=== PATIENT | female | born 1935 | race African-American/Black ===

== ENCOUNTER 2017-09-08 17:49 | Emergency (ER) | payer MEDICARE, BC ==
[~2017-09-08] VITALS: Ht 154.9 cm; Wt 54.0 kg
[~2017-09-08 17:49] MED LIST: ATEN50TA PO; CARB25TA3 PO
[2017-09-08 18:28] VITALS: BP 164/59
[2017-09-08 21:24] LABS: BASOPHILS % 0.3 % (0.0-2.0); HEMOGLOBIN. 11.7 g/dL (12.0-16.0); LYMPHOCYTES % 22.3 % (20.0-50.0); MEAN CORPUSCULAR HEMOGLOBIN 27.9 pg (28.0-32.0); MEAN CORPUSCULAR VOLUME 83.4 fL (81.0-99.0); MEAN PLATELET VOLUME 7.2 fl (7.4-10.4); MONOCYTES % 9.3 % (2.0-8.0); NEUTROPHILS % 67.1 % (40.0-76.0); PLATELET 290 x1000/uL (130-400); RED CELL DISTRIBUTION WIDTH 14.6 % (11.6-14.6)
[2017-09-08 21:28] LABS: CHLORIDE 106 mEq/L (98-107)
[2017-09-08 21:30] LABS: INR 1.1; PROTHROMBIN TIME 10.9 sec (9.4-11.6)
[2017-09-08 21:34] LABS: ETHANOL BLOOD < 10 mg/dL
[2017-09-08] MEDS ORDERED: POTASSIUM BICARB/CIT ACID 25 MEQ TABLET.EFF PO NR (22:00)
[2017-09-08] MEDS ORDERED: KCL 20MEQ/100ML PREMIX 100 ML IV ONE (22:00)
[2017-09-08] MEDS ORDERED: POTASSIUM CHLORIDE INJ 20 MEQ in SODIUM CHLORIDE 0.9% 90 ML IV NR (22:15)
== END 2017-09-09 01:56 | disposition home or self-care (01) ==
LOC: ER 17:49
DX: E87.6 Hypokalemia (principal); E11.9 Type 2 diabetes mellitus without complications; Z85.3 Personal history of malignant neoplasm of breast; Z86.73 Personal history of transient ischemic attack (TIA), and cerebral infarction without residual deficits
CPT/HCPCS: 36415; 71045; 80053; 83735; 84132; 84484; 85025; 85610; 93005; 96365; 96366; 99285; C1893; G0482; J3480; 96360; 96361; J7050

== ENCOUNTER 2018-04-27 14:30 | Inpatient (IN) | payer MEDICARE, BC ==
[~2018-04-27] VITALS: Ht 167.6 cm; Wt 71.2 kg
[~2018-04-27 14:30] MED LIST changes: +AMLO10TA4 MT; +ASPI-1159 MT; +ATOR10TA PO; +BIMA2.5D4 EACHEYE; +BRIM10DR2 EACHEYE; +CARB1TAB5 MT; -CARB25TA3 PO; +CHOL200077 MT
[2018-04-27 15:00] VITALS: BP 151/63
[2018-04-27] MEDS ORDERED: BISACODYL 5MG TABLET PO PRN (16:15)
[2018-04-27] MEDS ORDERED: ACETAMINOPHEN 650MG/20.3ML UDC PO PRN (16:15)
[2018-04-27] MEDS ORDERED: DEXTROSE 50% WATER 50ML SYRINGE IV PRN (16:15)
[2018-04-27] MEDS ORDERED: MEDICATION NOT ON FORMULARY EA (Aspirin (Aspirin Low Dose) 1 TAB) MT SCH (16:45)
[2018-04-27] MEDS ORDERED: DIPHENHYDRAMINE 50MG/ML VIAL IV PRN (16:45)
[2018-04-27] MEDS ORDERED: ACETAMINOPHEN 325MG TABLET PO PRN (16:45)
[2018-04-27] MEDS ORDERED: MAGNESIUM/ALUMINUM HYDROXIDE/SIMETHICONE 30ML UDC PO PRN (16:45)
[2018-04-27] MEDS ORDERED: ONDANSETRON HCL 4MG/2ML INJ IV PRN (16:45)
[2018-04-27] MEDS ORDERED: ACETAMINOPHEN 650MG SUPP PR PRN (16:45)
[2018-04-27] MEDS ORDERED: HYDROCODONE/ACETAMINOPHEN 5/325MG TABLET PO PRN (16:45)
[2018-04-27] MEDS ORDERED: GUAIFENESIN 200MG/10ML SUGAR FREE UDC PO PRN (16:45)
[2018-04-27] MEDS ORDERED: DOCUSATE SODIUM 100MG CAPSULE PO PRN (16:45)
[2018-04-27] MEDS ORDERED: MEDICATION NOT ON FORMULARY EA (Atenolol 1 TAB) PO SCH (16:45)
[2018-04-27] MEDS ORDERED: CLONIDINE 0.1MG TABLET PO PRN (16:45)
[2018-04-27] MEDS ORDERED: NA PHOS,M-B/NA PHOS,DI-BA ENEMA 118ML PR PRN (16:45)
[2018-04-27] MEDS ORDERED: IPRATROPIUM/ALBUTEROL 0.5-3(2.5)MG/3ML NEB INH PRN (16:45)
[2018-04-27] MEDS ORDERED: ACETAMINOPHEN 650MG/20.3ML UDC GT PRN (16:45)
[2018-04-27] MEDS ORDERED: AMLODIPINE 10MG TABLET PO SCH (16:45)
[2018-04-27] MEDS: INSULIN LISPRO 100 UNITS/ML SUBCUT SCH ×2 (17:00→21:40)
[2018-04-27] MEDS ORDERED: CARBIDOPA/LEVODOPA 25/100MG TABLET CR PO SCH ×2 (17:00)
[2018-04-27] MEDS: BLOOD SUGAR DIAGNOSTIC STRIP TEST SCH ×2 (17:27→21:16)
[2018-04-27] MEDS: DOCUSATE SODIUM 100MG CAPSULE PO SCH (18:29)
[2018-04-27] MEDS: CARBIDOPA/LEVODOPA 25/100MG TABLET CR PO SCH (18:34)
[2018-04-27] MEDS ORDERED: MEDICATION NOT ON FORMULARY EA (Brimonidine Tartrate/Timolol (Combigan Eye Drops) 1 DROP EACHEYE SCH (19:15)
[2018-04-27 20:00] VITALS: BP 135/69
[2018-04-27] MEDS ORDERED: ATORVASTATIN CALCIUM 10MG TABLET PO SCH (21:00)
[2018-04-27] MEDS: BUDESONIDE 0.5MG/2ML NEB HHN SCH (21:12)
[2018-04-27] MEDS: ATORVASTATIN CALCIUM 10MG TABLET PO SCH (21:38)
[2018-04-27] MEDS: ENOXAPARIN 40MG/0.4ML SYR SUBCUT SCH (21:39)
[2018-04-27] MEDS: TIMOLOL MALEATE 0.5% OPHTH DROPS 5ML EACHEYE SCH (21:41)
[2018-04-27] MEDS: BRIMONIDINE 0.2% OPHTH DROPS 5ML EACHEYE SCH (21:41)
[2018-04-27] MEDS: LATANOPROST 0.005% OPHTH DROPS 2.5ML EACHEYE SCH (21:42)
[2018-04-27] MEDS: SODIUM CHLORIDE 0.9% INJ 3ML FLUSH IVF SCH (21:44)
[2018-04-28] MEDS: INSULIN LISPRO 100 UNITS/ML SUBCUT SCH ×6 (06:23→22:10)
[2018-04-28] MEDS: BLOOD SUGAR DIAGNOSTIC STRIP TEST SCH ×4 (06:25→20:43)
[2018-04-28] MEDS: SODIUM CHLORIDE 0.9% INJ 3ML FLUSH IVF SCH ×3 (06:25→22:12)
[2018-04-28 08:11] VITALS: BP 166/61
[2018-04-28] MEDS ORDERED: MEDICATION NOT ON FORMULARY EA (Bimatoprost (Lumigan) 1 DROP) EACHEYE SCH (09:00)
[2018-04-28 09:17] LABS: HEMATOCRIT. 36.2 % (36.0-48.0); MEAN CORPUSCULAR HEMOGLOBIN 28.4 pg (28.0-32.0); MEAN CORPUSCULAR VOLUME 85.7 fL (81.0-99.0); MEAN PLATELET VOLUME 7.8 fl (7.4-10.4); PLATELET 255 x1000/uL (130-400); RED BLOOD CELL COUNT 4.22 mill/uL (4.2-5.4); RED CELL DISTRIBUTION WIDTH 13.2 % (11.6-14.6)
[2018-04-28] MEDS: TIMOLOL MALEATE 0.5% OPHTH DROPS 5ML EACHEYE SCH ×2 (09:35→22:06)
[2018-04-28 09:36] LABS: CHLORIDE 103 mEq/L (98-107)
[2018-04-28] MEDS: AMLODIPINE 10MG TABLET PO SCH (09:36)
[2018-04-28] MEDS: BRIMONIDINE 0.2% OPHTH DROPS 5ML EACHEYE SCH ×2 (09:36→22:06)
[2018-04-28] MEDS: CHOLECALCIFEROL (D3) 1000 UNIT TABLET PO SCH (09:37)
[2018-04-28] MEDS: CARBIDOPA/LEVODOPA 25/100MG TABLET CR PO SCH ×2 (09:37→17:30)
[2018-04-28] MEDS: DOCUSATE SODIUM 100MG CAPSULE PO SCH ×2 (09:37→17:30)
[2018-04-28] MEDS: CLOPIDOGREL 75MG TABLET PO SCH (09:38)
[2018-04-28] MEDS: ATENOLOL 50 MG TABLET PO SCH (09:38)
[2018-04-28] MEDS: ASPIRIN 81MG TABLET PO SCH (09:38)
[2018-04-28 09:45] LABS: HDL CHOLESTEROL 71 mg/dL (40-59); LDL CHOLESTEROL 71 mg/dL (5-100)
[2018-04-28] MEDS: BUDESONIDE 0.5MG/2ML NEB HHN SCH ×2 (14:50→21:59)
[2018-04-28 14:52] LABS: PLATELET ESTIMATE NORMAL
[2018-04-28] MEDS: ZINC SULFATE 220 MG ( 50 ) CAPSULE PO SCH (14:57)
[2018-04-28] MEDS: MULTIVITAMINS,THER W-MINERALS TABLET PO SCH (14:57)
[2018-04-28] MEDS: ASCORBIC ACID 250 MG TABLET PO SCH ×2 (14:58→22:05)
[2018-04-28] MEDS: IPRATROPIUM/ALBUTEROL 0.5-3(2.5)MG/3ML NEB HHN PRN ×2 (16:04→21:59)
[2018-04-28 20:24] VITALS: BP 113/52
[2018-04-28] MEDS: ATORVASTATIN CALCIUM 10MG TABLET PO SCH (22:04)
[2018-04-28] MEDS: ENOXAPARIN 40MG/0.4ML SYR SUBCUT SCH (22:05)
[2018-04-28] MEDS: LATANOPROST 0.005% OPHTH DROPS 2.5ML EACHEYE SCH (22:11)
[2018-04-29] MEDS: SODIUM CHLORIDE 0.9% INJ 3ML FLUSH IVF SCH ×3 (06:21→21:18)
[2018-04-29] MEDS: BLOOD SUGAR DIAGNOSTIC STRIP TEST SCH ×4 (06:22→20:14)
[2018-04-29] MEDS: INSULIN LISPRO 100 UNITS/ML SUBCUT SCH ×4 (06:22→20:17)
[2018-04-29] MEDS: IPRATROPIUM/ALBUTEROL 0.5-3(2.5)MG/3ML NEB HHN PRN ×2 (07:40→22:09)
[2018-04-29] MEDS: BUDESONIDE 0.5MG/2ML NEB HHN SCH ×2 (07:40→22:09)
[2018-04-29 08:30] VITALS: BP 130/55
[2018-04-29] MEDS: DOCUSATE SODIUM 100MG CAPSULE PO SCH ×2 (10:05→16:35)
[2018-04-29] MEDS: ASCORBIC ACID 250 MG TABLET PO SCH ×2 (10:05→20:14)
[2018-04-29] MEDS: CHOLECALCIFEROL (D3) 1000 UNIT TABLET PO SCH (10:05)
[2018-04-29] MEDS: CLOPIDOGREL 75MG TABLET PO SCH (10:05)
[2018-04-29] MEDS: ZINC SULFATE 220 MG ( 50 ) CAPSULE PO SCH (10:05)
[2018-04-29] MEDS: ATENOLOL 50 MG TABLET PO SCH (10:06)
[2018-04-29] MEDS: ASPIRIN 81MG TABLET PO SCH (10:06)
[2018-04-29] MEDS: CARBIDOPA/LEVODOPA 25/100MG TABLET CR PO SCH ×2 (10:06→17:59)
[2018-04-29] MEDS: AMLODIPINE 10MG TABLET PO SCH (10:07)
[2018-04-29] MEDS: MULTIVITAMINS,THER W-MINERALS TABLET PO SCH (10:07)
[2018-04-29] MEDS: TIMOLOL MALEATE 0.5% OPHTH DROPS 5ML EACHEYE SCH (17:58)
[2018-04-29] MEDS: BRIMONIDINE 0.2% OPHTH DROPS 5ML EACHEYE SCH (17:59)
[2018-04-29 20:00] VITALS: BP 118/40
[2018-04-29] MEDS: ATORVASTATIN CALCIUM 10MG TABLET PO SCH ×2 (20:14→21:00)
[2018-04-29] MEDS: ENOXAPARIN 40MG/0.4ML SYR SUBCUT SCH ×2 (20:14→20:17)
[2018-04-29] MEDS: LATANOPROST 0.005% OPHTH DROPS 2.5ML EACHEYE SCH (20:14)
[2018-04-30] MEDS: SODIUM CHLORIDE 0.9% INJ 3ML FLUSH IVF SCH ×3 (06:06→21:38)
[2018-04-30] MEDS: BLOOD SUGAR DIAGNOSTIC STRIP TEST SCH ×4 (06:06→21:14)
[2018-04-30] MEDS: INSULIN LISPRO 100 UNITS/ML SUBCUT SCH ×4 (06:07→21:00)
[2018-04-30 08:00] VITALS: BP 128/47
[2018-04-30] MEDS: BUDESONIDE 0.5MG/2ML NEB HHN SCH ×2 (08:51→20:41)
[2018-04-30] MEDS: IPRATROPIUM/ALBUTEROL 0.5-3(2.5)MG/3ML NEB HHN PRN ×2 (08:52→20:42)
[2018-04-30] MEDS: BRIMONIDINE 0.2% OPHTH DROPS 5ML EACHEYE SCH ×3 (09:00→21:58)
[2018-04-30] MEDS: TIMOLOL MALEATE 0.5% OPHTH DROPS 5ML EACHEYE SCH ×2 (09:00→21:57)
[2018-04-30] MEDS: CHOLECALCIFEROL (D3) 1000 UNIT TABLET PO SCH (10:05)
[2018-04-30] MEDS: MULTIVITAMINS,THER W-MINERALS TABLET PO SCH (10:08)
[2018-04-30] MEDS: ASCORBIC ACID 250 MG TABLET PO SCH ×2 (10:10→21:24)
[2018-04-30] MEDS: ZINC SULFATE 220 MG ( 50 ) CAPSULE PO SCH (10:11)
[2018-04-30] MEDS: ASPIRIN 81MG TABLET PO SCH (10:11)
[2018-04-30] MEDS: AMLODIPINE 10MG TABLET PO SCH (10:14)
[2018-04-30] MEDS: ATENOLOL 50 MG TABLET PO SCH (10:15)
[2018-04-30] MEDS: CARBIDOPA/LEVODOPA 25/100MG TABLET CR PO SCH ×3 (10:15→16:51)
[2018-04-30] MEDS: CLOPIDOGREL 75MG TABLET PO SCH (10:18)
[2018-04-30] MEDS: DOCUSATE SODIUM 100MG CAPSULE PO SCH ×2 (10:26→16:48)
[2018-04-30 20:00] VITALS: BP 130/57
[2018-04-30] MEDS: ENOXAPARIN 40MG/0.4ML SYR SUBCUT SCH (21:00)
[2018-04-30] MEDS: ATORVASTATIN CALCIUM 10MG TABLET PO SCH (21:24)
[2018-04-30] MEDS: LATANOPROST 0.005% OPHTH DROPS 2.5ML EACHEYE SCH (21:24)
[2018-05-01] MEDS: SODIUM CHLORIDE 0.9% INJ 3ML FLUSH IVF SCH ×3 (06:37→21:53)
[2018-05-01] MEDS: BLOOD SUGAR DIAGNOSTIC STRIP TEST SCH ×4 (06:37→21:52)
[2018-05-01 08:23] VITALS: BP 121/52
[2018-05-01] MEDS: INSULIN LISPRO 100 UNITS/ML SUBCUT SCH ×4 (09:00→21:00)
[2018-05-01] MEDS: TIMOLOL MALEATE 0.5% OPHTH DROPS 5ML EACHEYE SCH ×2 (09:00→21:37)
[2018-05-01] MEDS: BRIMONIDINE 0.2% OPHTH DROPS 5ML EACHEYE SCH ×2 (09:00→21:35)
[2018-05-01] MEDS: MULTIVITAMINS,THER W-MINERALS TABLET PO SCH (09:35)
[2018-05-01] MEDS: ASCORBIC ACID 250 MG TABLET PO SCH ×2 (09:35→21:34)
[2018-05-01] MEDS: CHOLECALCIFEROL (D3) 1000 UNIT TABLET PO SCH (09:35)
[2018-05-01] MEDS: CLOPIDOGREL 75MG TABLET PO SCH (09:35)
[2018-05-01] MEDS: ASPIRIN 81MG TABLET PO SCH (09:36)
[2018-05-01] MEDS: ZINC SULFATE 220 MG ( 50 ) CAPSULE PO SCH (09:36)
[2018-05-01] MEDS: DOCUSATE SODIUM 100MG CAPSULE PO SCH ×2 (09:36→17:08)
[2018-05-01] MEDS: CARBIDOPA/LEVODOPA 25/100MG TABLET CR PO SCH ×2 (09:36→17:08)
[2018-05-01] MEDS: ATENOLOL 50 MG TABLET PO SCH (09:37)
[2018-05-01] MEDS: AMLODIPINE 10MG TABLET PO SCH (09:38)
[2018-05-01 20:00] VITALS: BP 134/48
[2018-05-01] MEDS: ATORVASTATIN CALCIUM 10MG TABLET PO SCH (21:34)
[2018-05-01] MEDS: LATANOPROST 0.005% OPHTH DROPS 2.5ML EACHEYE SCH ×2 (21:35→21:36)
[2018-05-01] MEDS: ENOXAPARIN 40MG/0.4ML SYR SUBCUT SCH (21:38)
[2018-05-02] MEDS: SODIUM CHLORIDE 0.9% INJ 3ML FLUSH IVF SCH ×3 (06:00→22:00)
[2018-05-02] MEDS: BLOOD SUGAR DIAGNOSTIC STRIP TEST SCH ×4 (06:30→21:07)
[2018-05-02] MEDS: INSULIN LISPRO 100 UNITS/ML SUBCUT SCH ×4 (06:44→21:00)
[2018-05-02 07:57] VITALS: BP 112/54
[2018-05-02] MEDS: CARBIDOPA/LEVODOPA 25/100MG TABLET CR PO SCH ×2 (09:27→17:48)
[2018-05-02] MEDS: AMLODIPINE 10MG TABLET PO SCH (09:27)
[2018-05-02] MEDS: TIMOLOL MALEATE 0.5% OPHTH DROPS 5ML EACHEYE SCH ×2 (09:27→21:07)
[2018-05-02] MEDS: BRIMONIDINE 0.2% OPHTH DROPS 5ML EACHEYE SCH ×2 (09:27→21:07)
[2018-05-02] MEDS: MULTIVITAMINS,THER W-MINERALS TABLET PO SCH (09:30)
[2018-05-02] MEDS: ASPIRIN 81MG TABLET PO SCH (09:30)
[2018-05-02] MEDS: CLOPIDOGREL 75MG TABLET PO SCH (09:30)
[2018-05-02] MEDS: DOCUSATE SODIUM 100MG CAPSULE PO SCH ×2 (09:30→17:48)
[2018-05-02] MEDS: ZINC SULFATE 220 MG ( 50 ) CAPSULE PO SCH (09:30)
[2018-05-02] MEDS: CHOLECALCIFEROL (D3) 1000 UNIT TABLET PO SCH (09:30)
[2018-05-02] MEDS: ATENOLOL 50 MG TABLET PO SCH (09:30)
[2018-05-02] MEDS: ASCORBIC ACID 250 MG TABLET PO SCH ×2 (09:30→21:06)
[2018-05-02] MEDS: SODIUM CHLORIDE 0.9% 1,000 ML IV SCH (13:15)
[2018-05-02 17:23] LABS: BASOPHILS % 0.3 % (0.0-2.0); EOSINOPHILS % 1.4 % (0.0-5.0); HEMATOCRIT. 31.9 % (36.0-48.0); HEMOGLOBIN. 10.8 g/dL (12.0-16.0); LYMPHOCYTES % 17.7 % (20.0-50.0); MEAN CORPUSCULAR HEMOGLOBIN 28.8 pg (28.0-32.0); MEAN CORPUSCULAR VOLUME 84.8 fL (81.0-99.0); MEAN PLATELET VOLUME 7.6 fl (7.4-10.4); MONOCYTES % 10.2 % (2.0-8.0); NEUTROPHILS % 70.4 % (40.0-76.0); PLATELET 317 x1000/uL (130-400); RED BLOOD CELL COUNT 3.77 mill/uL (4.2-5.4); RED CELL DISTRIBUTION WIDTH 12.7 % (11.6-14.6)
[2018-05-02 17:25] LABS: CLARITY URINE CLEAR (CLEAR); COLOR URINE YELLOW (YELLOW); KETONES URINE NEGATIVE (NEGATIVE); LEUKOCYTE ESTERASE URINE NEGATIVE (NEGATIVE); NITRITE URINE NEGATIVE (NEGATIVE); OCCULT BLOOD URINE NEGATIVE (NEGATIVE); PROTEIN URINE NEGATIVE (NEGATIVE); SPECIFIC GRAVITY URINE 1.015 (1.005-1.030); UROBILINOGEN URINE 0.2 E.U./dL (0.2-1.0)
[2018-05-02 17:30] LABS: CHLORIDE 102 mEq/L (98-107); INR 1.1; PROTHROMBIN TIME 10.7 sec (9.1-11.1)
[2018-05-02 20:00] VITALS: BP 134/58
[2018-05-02] MEDS: ATORVASTATIN CALCIUM 10MG TABLET PO SCH (21:06)
[2018-05-02] MEDS: LATANOPROST 0.005% OPHTH DROPS 2.5ML EACHEYE SCH (21:07)
[2018-05-02] MEDS: ENOXAPARIN 40MG/0.4ML SYR SUBCUT SCH (21:07)
[2018-05-03] MEDS: SODIUM CHLORIDE 0.9% 1,000 ML IV SCH (05:55)
[2018-05-03] MEDS: SODIUM CHLORIDE 0.9% INJ 3ML FLUSH IVF SCH (06:00)
[2018-05-03] MEDS: INSULIN LISPRO 100 UNITS/ML SUBCUT SCH ×4 (06:23→21:00)
[2018-05-03] MEDS: BLOOD SUGAR DIAGNOSTIC STRIP TEST SCH ×4 (06:23→21:53)
[2018-05-03 08:51] VITALS: BP 130/58
[2018-05-03] MEDS: MULTIVITAMINS,THER W-MINERALS TABLET PO SCH (09:56)
[2018-05-03] MEDS: ASCORBIC ACID 250 MG TABLET PO SCH ×2 (09:57→21:52)
[2018-05-03] MEDS: ZINC SULFATE 220 MG ( 50 ) CAPSULE PO SCH (09:57)
[2018-05-03] MEDS: CARBIDOPA/LEVODOPA 25/100MG TABLET CR PO SCH ×2 (09:57→17:31)
[2018-05-03] MEDS: DOCUSATE SODIUM 100MG CAPSULE PO SCH ×2 (09:57→17:31)
[2018-05-03] MEDS: CLOPIDOGREL 75MG TABLET PO SCH (09:57)
[2018-05-03] MEDS: CHOLECALCIFEROL (D3) 1000 UNIT TABLET PO SCH (09:58)
[2018-05-03] MEDS: ASPIRIN 81MG TABLET PO SCH (09:58)
[2018-05-03] MEDS: AMLODIPINE 10MG TABLET PO SCH (09:58)
[2018-05-03] MEDS: ATENOLOL 50 MG TABLET PO SCH (09:59)
[2018-05-03] MEDS: TIMOLOL MALEATE 0.5% OPHTH DROPS 5ML EACHEYE SCH ×2 (09:59→21:54)
[2018-05-03] MEDS: BRIMONIDINE 0.2% OPHTH DROPS 5ML EACHEYE SCH ×2 (09:59→21:54)
[2018-05-03 20:00] VITALS: BP 114/74
[2018-05-03] MEDS: ATORVASTATIN CALCIUM 10MG TABLET PO SCH (21:52)
[2018-05-03] MEDS: ENOXAPARIN 40MG/0.4ML SYR SUBCUT SCH (21:53)
[2018-05-03] MEDS: LATANOPROST 0.005% OPHTH DROPS 2.5ML EACHEYE SCH (21:54)
[2018-05-04] MEDS: INSULIN LISPRO 100 UNITS/ML SUBCUT SCH ×4 (06:43→21:00)
[2018-05-04] MEDS: BLOOD SUGAR DIAGNOSTIC STRIP TEST SCH ×4 (06:43→21:00)
[2018-05-04 08:00] VITALS: BP 143/59
[2018-05-04] MEDS: CHOLECALCIFEROL (D3) 1000 UNIT TABLET PO SCH (09:22)
[2018-05-04] MEDS: CLOPIDOGREL 75MG TABLET PO SCH (09:22)
[2018-05-04] MEDS: CARBIDOPA/LEVODOPA 25/100MG TABLET CR PO SCH ×2 (09:22→17:05)
[2018-05-04] MEDS: ASPIRIN 81MG TABLET PO SCH (09:23)
[2018-05-04] MEDS: DOCUSATE SODIUM 100MG CAPSULE PO SCH ×2 (09:23→17:05)
[2018-05-04] MEDS: ATENOLOL 50 MG TABLET PO SCH (09:24)
[2018-05-04] MEDS: MULTIVITAMINS,THER W-MINERALS TABLET PO SCH (09:24)
[2018-05-04] MEDS: ZINC SULFATE 220 MG ( 50 ) CAPSULE PO SCH (09:24)
[2018-05-04] MEDS: AMLODIPINE 10MG TABLET PO SCH (09:24)
[2018-05-04] MEDS: ASCORBIC ACID 250 MG TABLET PO SCH ×2 (09:25→21:42)
[2018-05-04] MEDS: BRIMONIDINE 0.2% OPHTH DROPS 5ML EACHEYE SCH ×2 (09:25→21:41)
[2018-05-04] MEDS: TIMOLOL MALEATE 0.5% OPHTH DROPS 5ML EACHEYE SCH ×2 (09:25→21:40)
[2018-05-04 20:00] VITALS: BP 126/51
[2018-05-04] MEDS: ENOXAPARIN 40MG/0.4ML SYR SUBCUT SCH (21:39)
[2018-05-04] MEDS: LATANOPROST 0.005% OPHTH DROPS 2.5ML EACHEYE SCH (21:41)
[2018-05-04] MEDS: ATORVASTATIN CALCIUM 10MG TABLET PO SCH (21:41)
[2018-05-05] MEDS: BLOOD SUGAR DIAGNOSTIC STRIP TEST SCH ×4 (06:04→21:35)
[2018-05-05] MEDS: INSULIN LISPRO 100 UNITS/ML SUBCUT SCH ×4 (06:04→21:00)
[2018-05-05 08:00] VITALS: BP 125/54
[2018-05-05] MEDS: MULTIVITAMINS,THER W-MINERALS TABLET PO SCH (08:51)
[2018-05-05] MEDS: ZINC SULFATE 220 MG ( 50 ) CAPSULE PO SCH (08:52)
[2018-05-05] MEDS: CHOLECALCIFEROL (D3) 1000 UNIT TABLET PO SCH (08:52)
[2018-05-05] MEDS: ATENOLOL 50 MG TABLET PO SCH (08:52)
[2018-05-05] MEDS: ASPIRIN 81MG TABLET PO SCH (08:52)
[2018-05-05] MEDS: CLOPIDOGREL 75MG TABLET PO SCH (08:52)
[2018-05-05] MEDS: AMLODIPINE 10MG TABLET PO SCH (08:52)
[2018-05-05] MEDS: DOCUSATE SODIUM 100MG CAPSULE PO SCH ×2 (08:52→17:48)
[2018-05-05] MEDS: CARBIDOPA/LEVODOPA 25/100MG TABLET CR PO SCH ×2 (08:52→17:48)
[2018-05-05] MEDS: ASCORBIC ACID 250 MG TABLET PO SCH ×2 (08:52→21:35)
[2018-05-05] MEDS: BRIMONIDINE 0.2% OPHTH DROPS 5ML EACHEYE SCH ×2 (09:36→21:35)
[2018-05-05] MEDS: TIMOLOL MALEATE 0.5% OPHTH DROPS 5ML EACHEYE SCH ×2 (09:36→21:35)
[2018-05-05 20:00] VITALS: BP 131/52
[2018-05-05] MEDS: ENOXAPARIN 40MG/0.4ML SYR SUBCUT SCH (21:00)
[2018-05-05] MEDS: ATORVASTATIN CALCIUM 10MG TABLET PO SCH (21:35)
[2018-05-06] MEDS: BLOOD SUGAR DIAGNOSTIC STRIP TEST SCH ×4 (06:58→21:21)
[2018-05-06] MEDS: INSULIN LISPRO 100 UNITS/ML SUBCUT SCH ×4 (06:59→21:00)
[2018-05-06 08:43] VITALS: BP 122/52
[2018-05-06] MEDS: ASCORBIC ACID 250 MG TABLET PO SCH ×2 (09:00→21:12)
[2018-05-06] MEDS: BRIMONIDINE 0.2% OPHTH DROPS 5ML EACHEYE SCH ×2 (10:02→21:12)
[2018-05-06] MEDS: ZINC SULFATE 220 MG ( 50 ) CAPSULE PO SCH (10:02)
[2018-05-06] MEDS: CARBIDOPA/LEVODOPA 25/100MG TABLET CR PO SCH ×2 (10:02→17:25)
[2018-05-06] MEDS: DOCUSATE SODIUM 100MG CAPSULE PO SCH ×2 (10:02→17:25)
[2018-05-06] MEDS: CHOLECALCIFEROL (D3) 1000 UNIT TABLET PO SCH (10:02)
[2018-05-06] MEDS: TIMOLOL MALEATE 0.5% OPHTH DROPS 5ML EACHEYE SCH ×2 (10:02→21:12)
[2018-05-06] MEDS: MULTIVITAMINS,THER W-MINERALS TABLET PO SCH (10:02)
[2018-05-06] MEDS: CLOPIDOGREL 75MG TABLET PO SCH (10:03)
[2018-05-06] MEDS: ASPIRIN 81MG TABLET PO SCH (10:03)
[2018-05-06] MEDS: ATENOLOL 50 MG TABLET PO SCH (10:03)
[2018-05-06] MEDS: AMLODIPINE 10MG TABLET PO SCH (10:03)
[2018-05-06 20:00] VITALS: BP 137/47
[2018-05-06] MEDS: ENOXAPARIN 40MG/0.4ML SYR SUBCUT SCH (21:00)
[2018-05-06] MEDS: ATORVASTATIN CALCIUM 10MG TABLET PO SCH (21:12)
[2018-05-06] MEDS: LATANOPROST 0.005% OPHTH DROPS 2.5ML EACHEYE SCH (21:20)
[2018-05-07] MEDS: BLOOD SUGAR DIAGNOSTIC STRIP TEST SCH ×4 (06:55→21:20)
[2018-05-07 07:30] VITALS: BP 128/53
[2018-05-07] MEDS: INSULIN LISPRO 100 UNITS/ML SUBCUT SCH ×4 (09:00→21:00)
[2018-05-07] MEDS: CLOPIDOGREL 75MG TABLET PO SCH (09:00)
[2018-05-07] MEDS: CHOLECALCIFEROL (D3) 1000 UNIT TABLET PO SCH (09:28)
[2018-05-07] MEDS: CARBIDOPA/LEVODOPA 25/100MG TABLET CR PO SCH ×2 (09:28→17:20)
[2018-05-07] MEDS: ZINC SULFATE 220 MG ( 50 ) CAPSULE PO SCH (09:28)
[2018-05-07] MEDS: ASPIRIN 81MG TABLET PO SCH (09:28)
[2018-05-07] MEDS: DOCUSATE SODIUM 100MG CAPSULE PO SCH ×2 (09:29→17:20)
[2018-05-07] MEDS: MULTIVITAMINS,THER W-MINERALS TABLET PO SCH (09:29)
[2018-05-07] MEDS: ASCORBIC ACID 250 MG TABLET PO SCH ×2 (09:29→21:17)
[2018-05-07] MEDS: TIMOLOL MALEATE 0.5% OPHTH DROPS 5ML EACHEYE SCH ×2 (09:30→21:17)
[2018-05-07] MEDS: BRIMONIDINE 0.2% OPHTH DROPS 5ML EACHEYE SCH ×2 (09:30→21:17)
[2018-05-07] MEDS: ATENOLOL 50 MG TABLET PO SCH (10:02)
[2018-05-07] MEDS: AMLODIPINE 10MG TABLET PO SCH (10:03)
[2018-05-07 20:00] VITALS: BP 129/50
[2018-05-07] MEDS: ENOXAPARIN 40MG/0.4ML SYR SUBCUT SCH (21:00)
[2018-05-07] MEDS: LATANOPROST 0.005% OPHTH DROPS 2.5ML EACHEYE SCH (21:17)
[2018-05-07] MEDS: ATORVASTATIN CALCIUM 10MG TABLET PO SCH (21:17)
[2018-05-08 05:57] LABS: BASOPHILS % 0.3 % (0.0-2.0); HEMATOCRIT. 31.9 % (36.0-48.0); HEMOGLOBIN. 10.9 g/dL (12.0-16.0); LYMPHOCYTES % 16.6 % (20.0-50.0); MEAN CORPUSCULAR VOLUME 85.1 fL (81.0-99.0); MEAN PLATELET VOLUME 7.2 fl (7.4-10.4); MONOCYTES % 8.9 % (2.0-8.0); NEUTROPHILS % 73.2 % (40.0-76.0); PLATELET 377 x1000/uL (130-400); RED BLOOD CELL COUNT 3.75 mill/uL (4.2-5.4); RED CELL DISTRIBUTION WIDTH 12.9 % (11.6-14.6)
[2018-05-08 06:10] LABS: CHLORIDE 108 mEq/L (98-107)
[2018-05-08] MEDS: BLOOD SUGAR DIAGNOSTIC STRIP TEST SCH ×4 (06:29→21:51)
[2018-05-08 08:00] VITALS: BP 135/54
[2018-05-08] MEDS: INSULIN LISPRO 100 UNITS/ML SUBCUT SCH ×4 (08:04→21:00)
[2018-05-08] MEDS: BRIMONIDINE 0.2% OPHTH DROPS 5ML EACHEYE SCH ×2 (08:34→21:36)
[2018-05-08] MEDS: TIMOLOL MALEATE 0.5% OPHTH DROPS 5ML EACHEYE SCH ×2 (08:34→21:35)
[2018-05-08] MEDS: CHOLECALCIFEROL (D3) 1000 UNIT TABLET PO SCH (08:34)
[2018-05-08] MEDS: CLOPIDOGREL 75MG TABLET PO SCH (08:34)
[2018-05-08] MEDS: ASPIRIN 81MG TABLET PO SCH (08:34)
[2018-05-08] MEDS: ASCORBIC ACID 250 MG TABLET PO SCH ×2 (08:34→21:36)
[2018-05-08] MEDS: ZINC SULFATE 220 MG ( 50 ) CAPSULE PO SCH (08:34)
[2018-05-08] MEDS: CARBIDOPA/LEVODOPA 25/100MG TABLET CR PO SCH ×2 (08:35→17:18)
[2018-05-08] MEDS: MULTIVITAMINS,THER W-MINERALS TABLET PO SCH (08:35)
[2018-05-08] MEDS: ATENOLOL 50 MG TABLET PO SCH (08:37)
[2018-05-08] MEDS: AMLODIPINE 10MG TABLET PO SCH (08:37)
[2018-05-08] MEDS: DOCUSATE SODIUM 100MG CAPSULE PO SCH ×2 (08:45→17:18)
[2018-05-08 20:00] VITALS: BP 136/66
[2018-05-08] MEDS: ENOXAPARIN 40MG/0.4ML SYR SUBCUT SCH (21:00)
[2018-05-08] MEDS: ATORVASTATIN CALCIUM 10MG TABLET PO SCH (21:36)
[2018-05-08] MEDS: LATANOPROST 0.005% OPHTH DROPS 2.5ML EACHEYE SCH (21:36)
[2018-05-09] MEDS: BLOOD SUGAR DIAGNOSTIC STRIP TEST SCH ×4 (06:19→21:44)
[2018-05-09 08:00] VITALS: BP 124/57
[2018-05-09] MEDS: INSULIN LISPRO 100 UNITS/ML SUBCUT SCH ×4 (09:00→21:00)
[2018-05-09] MEDS: BRIMONIDINE 0.2% OPHTH DROPS 5ML EACHEYE SCH ×2 (09:37→21:42)
[2018-05-09] MEDS: TIMOLOL MALEATE 0.5% OPHTH DROPS 5ML EACHEYE SCH ×2 (09:37→21:42)
[2018-05-09] MEDS: ZINC SULFATE 220 MG ( 50 ) CAPSULE PO SCH (09:38)
[2018-05-09] MEDS: ASPIRIN 81MG TABLET PO SCH (09:38)
[2018-05-09] MEDS: CARBIDOPA/LEVODOPA 25/100MG TABLET CR PO SCH ×2 (09:38→17:07)
[2018-05-09] MEDS: CLOPIDOGREL 75MG TABLET PO SCH (09:38)
[2018-05-09] MEDS: MULTIVITAMINS,THER W-MINERALS TABLET PO SCH (09:39)
[2018-05-09] MEDS: CHOLECALCIFEROL (D3) 1000 UNIT TABLET PO SCH (09:39)
[2018-05-09] MEDS: AMLODIPINE 10MG TABLET PO SCH (09:39)
[2018-05-09] MEDS: ASCORBIC ACID 250 MG TABLET PO SCH ×2 (09:40→21:43)
[2018-05-09] MEDS: DOCUSATE SODIUM 100MG CAPSULE PO SCH ×2 (09:40→17:07)
[2018-05-09] MEDS: ATENOLOL 50 MG TABLET PO SCH (09:40)
[2018-05-09 20:00] VITALS: BP 130/69
[2018-05-09] MEDS: ENOXAPARIN 40MG/0.4ML SYR SUBCUT SCH (21:00)
[2018-05-09] MEDS: LATANOPROST 0.005% OPHTH DROPS 2.5ML EACHEYE SCH (21:41)
[2018-05-09] MEDS: ATORVASTATIN CALCIUM 10MG TABLET PO SCH (21:44)
[2018-05-10] MEDS: BLOOD SUGAR DIAGNOSTIC STRIP TEST SCH ×4 (06:33→21:00)
[2018-05-10 08:12] VITALS: BP 139/60
[2018-05-10] MEDS: ATENOLOL 50 MG TABLET PO SCH (09:00)
[2018-05-10] MEDS: INSULIN LISPRO 100 UNITS/ML SUBCUT SCH ×4 (09:00→21:00)
[2018-05-10] MEDS: ASPIRIN 81MG TABLET PO SCH (09:07)
[2018-05-10] MEDS: ZINC SULFATE 220 MG ( 50 ) CAPSULE PO SCH (09:07)
[2018-05-10] MEDS: CLOPIDOGREL 75MG TABLET PO SCH (09:07)
[2018-05-10] MEDS: CARBIDOPA/LEVODOPA 25/100MG TABLET CR PO SCH ×2 (09:07→18:09)
[2018-05-10] MEDS: MULTIVITAMINS,THER W-MINERALS TABLET PO SCH (09:07)
[2018-05-10] MEDS: CHOLECALCIFEROL (D3) 1000 UNIT TABLET PO SCH (09:07)
[2018-05-10] MEDS: ASCORBIC ACID 250 MG TABLET PO SCH ×2 (09:08→21:34)
[2018-05-10] MEDS: DOCUSATE SODIUM 100MG CAPSULE PO SCH ×2 (09:08→18:10)
[2018-05-10] MEDS: AMLODIPINE 10MG TABLET PO SCH (09:08)
[2018-05-10] MEDS: BRIMONIDINE 0.2% OPHTH DROPS 5ML EACHEYE SCH ×2 (09:12→21:34)
[2018-05-10] MEDS: TIMOLOL MALEATE 0.5% OPHTH DROPS 5ML EACHEYE SCH ×2 (09:12→21:34)
[2018-05-10 20:00] VITALS: BP_SYST 133; BP_SYST 147; BP_DIAS 49; BP_DIAS 62
[2018-05-10] MEDS: ENOXAPARIN 40MG/0.4ML SYR SUBCUT SCH (21:00)
[2018-05-10] MEDS: ATORVASTATIN CALCIUM 10MG TABLET PO SCH (21:34)
[2018-05-10] MEDS: LATANOPROST 0.005% OPHTH DROPS 2.5ML EACHEYE SCH (21:34)
[2018-05-11] MEDS: INSULIN LISPRO 100 UNITS/ML SUBCUT SCH ×2 (06:49→11:51)
[2018-05-11] MEDS: BLOOD SUGAR DIAGNOSTIC STRIP TEST SCH ×2 (06:49→11:21)
[2018-05-11 08:31] VITALS: BP 141/57
[2018-05-11] MEDS: ATENOLOL 50 MG TABLET PO SCH (09:00)
[2018-05-11] MEDS: ASCORBIC ACID 250 MG TABLET PO SCH ×2 (09:00→21:00)
[2018-05-11] MEDS: CARBIDOPA/LEVODOPA 25/100MG TABLET CR PO SCH ×3 (09:00→17:20)
[2018-05-11] MEDS: BRIMONIDINE 0.2% OPHTH DROPS 5ML EACHEYE SCH ×3 (09:00→22:02)
[2018-05-11] MEDS: TIMOLOL MALEATE 0.5% OPHTH DROPS 5ML EACHEYE SCH ×3 (09:00→22:02)
[2018-05-11] MEDS: CHOLECALCIFEROL (D3) 1000 UNIT TABLET PO SCH (10:00)
[2018-05-11] MEDS: ASPIRIN 81MG TABLET PO SCH (10:01)
[2018-05-11] MEDS: CLOPIDOGREL 75MG TABLET PO SCH (10:01)
[2018-05-11] MEDS: MULTIVITAMINS,THER W-MINERALS TABLET PO SCH (10:01)
[2018-05-11] MEDS: AMLODIPINE 10MG TABLET PO SCH (10:01)
[2018-05-11] MEDS: DOCUSATE SODIUM 100MG CAPSULE PO SCH ×2 (10:02→17:20)
[2018-05-11] MEDS: ZINC SULFATE 220 MG ( 50 ) CAPSULE PO SCH (10:02)
[2018-05-11 14:46] LABS: T4 FREE 1.51 ng/dL (0.76-1.46)
[2018-05-11 20:00] VITALS: BP 121/52
[2018-05-11] MEDS: ENOXAPARIN 40MG/0.4ML SYR SUBCUT SCH (21:00)
[2018-05-11] MEDS: ATORVASTATIN CALCIUM 10MG TABLET PO SCH (21:00)
[2018-05-11] MEDS: LATANOPROST 0.005% OPHTH DROPS 2.5ML EACHEYE SCH (22:02)
[2018-05-12 08:02] VITALS: BP 110/50
[2018-05-12] MEDS: ATENOLOL 50 MG TABLET PO SCH (09:00)
[2018-05-12] MEDS: AMLODIPINE 10MG TABLET PO SCH (09:00)
[2018-05-12] MEDS: TIMOLOL MALEATE 0.5% OPHTH DROPS 5ML EACHEYE SCH ×2 (10:19→21:37)
[2018-05-12] MEDS: MULTIVITAMINS,THER W-MINERALS TABLET PO SCH (10:19)
[2018-05-12] MEDS: BRIMONIDINE 0.2% OPHTH DROPS 5ML EACHEYE SCH ×2 (10:19→21:37)
[2018-05-12] MEDS: CLOPIDOGREL 75MG TABLET PO SCH (10:19)
[2018-05-12] MEDS: ZINC SULFATE 220 MG ( 50 ) CAPSULE PO SCH (10:20)
[2018-05-12] MEDS: DOCUSATE SODIUM 100MG CAPSULE PO SCH ×2 (10:20→17:00)
[2018-05-12] MEDS: CHOLECALCIFEROL (D3) 1000 UNIT TABLET PO SCH (10:21)
[2018-05-12] MEDS: ASCORBIC ACID 250 MG TABLET PO SCH ×2 (10:21→21:37)
[2018-05-12] MEDS: ASPIRIN 81MG TABLET PO SCH (10:21)
[2018-05-12] MEDS: LINAGLIPTIN 5MG TABLET PO SCH (10:22)
[2018-05-12] MEDS: CARBIDOPA/LEVODOPA 25/100MG TABLET CR PO SCH ×2 (10:27→17:49)
[2018-05-12 20:00] VITALS: BP 135/43
[2018-05-12] MEDS: ENOXAPARIN 40MG/0.4ML SYR SUBCUT SCH (21:00)
[2018-05-12] MEDS: ATORVASTATIN CALCIUM 10MG TABLET PO SCH (21:37)
[2018-05-12] MEDS: LATANOPROST 0.005% OPHTH DROPS 2.5ML EACHEYE SCH (21:37)
[2018-05-13 08:00] VITALS: BP 112/50
[2018-05-13] MEDS: ASCORBIC ACID 250 MG TABLET PO SCH ×2 (08:21→20:29)
[2018-05-13] MEDS: AMLODIPINE 10MG TABLET PO SCH (08:21)
[2018-05-13] MEDS: ATENOLOL 50 MG TABLET PO SCH (08:21)
[2018-05-13] MEDS: MULTIVITAMINS,THER W-MINERALS TABLET PO SCH (08:21)
[2018-05-13] MEDS: CLOPIDOGREL 75MG TABLET PO SCH (08:22)
[2018-05-13] MEDS: ASPIRIN 81MG TABLET PO SCH (08:22)
[2018-05-13] MEDS: DOCUSATE SODIUM 100MG CAPSULE PO SCH ×2 (08:22→17:17)
[2018-05-13] MEDS: ZINC SULFATE 220 MG ( 50 ) CAPSULE PO SCH (08:22)
[2018-05-13] MEDS: CARBIDOPA/LEVODOPA 25/100MG TABLET CR PO SCH ×2 (08:23→17:17)
[2018-05-13] MEDS: CHOLECALCIFEROL (D3) 1000 UNIT TABLET PO SCH (08:25)
[2018-05-13] MEDS: TIMOLOL MALEATE 0.5% OPHTH DROPS 5ML EACHEYE SCH ×2 (09:00→20:29)
[2018-05-13] MEDS: BRIMONIDINE 0.2% OPHTH DROPS 5ML EACHEYE SCH ×2 (09:00→20:29)
[2018-05-13 20:00] VITALS: BP 147/66
[2018-05-13] MEDS: LATANOPROST 0.005% OPHTH DROPS 2.5ML EACHEYE SCH (20:29)
[2018-05-13] MEDS: ENOXAPARIN 40MG/0.4ML SYR SUBCUT SCH (20:29)
[2018-05-13] MEDS: ATORVASTATIN CALCIUM 10MG TABLET PO SCH (20:29)
[2018-05-14 08:00] VITALS: BP 131/54
[2018-05-14] MEDS: CHOLECALCIFEROL (D3) 1000 UNIT TABLET PO SCH (10:06)
[2018-05-14] MEDS: CLOPIDOGREL 75MG TABLET PO SCH (10:07)
[2018-05-14] MEDS: ZINC SULFATE 220 MG ( 50 ) CAPSULE PO SCH (10:07)
[2018-05-14] MEDS: ASPIRIN 81MG TABLET PO SCH (10:07)
[2018-05-14] MEDS: AMLODIPINE 10MG TABLET PO SCH (10:07)
[2018-05-14] MEDS: LINAGLIPTIN 5MG TABLET PO SCH (10:08)
[2018-05-14] MEDS: ASCORBIC ACID 250 MG TABLET PO SCH ×2 (10:08→20:43)
[2018-05-14] MEDS: DOCUSATE SODIUM 100MG CAPSULE PO SCH ×2 (10:08→17:53)
[2018-05-14] MEDS: ATENOLOL 50 MG TABLET PO SCH (10:08)
[2018-05-14] MEDS: MULTIVITAMINS,THER W-MINERALS TABLET PO SCH (10:09)
[2018-05-14] MEDS: BRIMONIDINE 0.2% OPHTH DROPS 5ML EACHEYE SCH ×2 (10:17→20:43)
[2018-05-14] MEDS: TIMOLOL MALEATE 0.5% OPHTH DROPS 5ML EACHEYE SCH ×2 (10:17→20:43)
[2018-05-14] MEDS: CARBIDOPA/LEVODOPA 25/100MG TABLET CR PO SCH ×2 (10:57→17:53)
[2018-05-14 20:00] VITALS: BP 151/55
[2018-05-14] MEDS: LATANOPROST 0.005% OPHTH DROPS 2.5ML EACHEYE SCH (20:43)
[2018-05-14] MEDS: ATORVASTATIN CALCIUM 10MG TABLET PO SCH (20:43)
[2018-05-14] MEDS: ENOXAPARIN 40MG/0.4ML SYR SUBCUT SCH (20:55)
[2018-05-15 07:22] LABS: HEMOGLOBIN. 11.4 g/dL (12.0-16.0); MEAN CORPUSCULAR HEMOGLOBIN 28.4 pg (28.0-32.0); PLATELET 301 x1000/uL (130-400); RED CELL DISTRIBUTION WIDTH 13.3 % (11.6-14.6)
[2018-05-15 07:53] LABS: CHLORIDE 106 mEq/L (98-107)
[2018-05-15 08:01] LABS: PHOSPHORUS 4.1 mg/dL (2.5-4.9)
[2018-05-15 08:31] VITALS: BP 127/55
[2018-05-15] MEDS: CLOPIDOGREL 75MG TABLET PO SCH (09:00)
[2018-05-15] MEDS: ATENOLOL 50 MG TABLET PO SCH (09:00)
[2018-05-15] MEDS: AMLODIPINE 10MG TABLET PO SCH (09:00)
[2018-05-15] MEDS: MULTIVITAMINS,THER W-MINERALS TABLET PO SCH (09:29)
[2018-05-15] MEDS: LINAGLIPTIN 5MG TABLET PO SCH (09:31)
[2018-05-15] MEDS: DOCUSATE SODIUM 100MG CAPSULE PO SCH ×2 (09:32→16:58)
[2018-05-15] MEDS: ASCORBIC ACID 250 MG TABLET PO SCH (09:33)
[2018-05-15] MEDS: BRIMONIDINE 0.2% OPHTH DROPS 5ML EACHEYE SCH (09:34)
[2018-05-15] MEDS: TIMOLOL MALEATE 0.5% OPHTH DROPS 5ML EACHEYE SCH (09:35)
[2018-05-15] MEDS: ZINC SULFATE 220 MG ( 50 ) CAPSULE PO SCH (09:37)
[2018-05-15] MEDS: CHOLECALCIFEROL (D3) 1000 UNIT TABLET PO SCH (09:40)
[2018-05-15] MEDS: ASPIRIN 81MG TABLET PO SCH (09:46)
[2018-05-15] MEDS: CARBIDOPA/LEVODOPA 25/100MG TABLET CR PO SCH ×2 (09:54→16:58)
[2018-05-15] MEDS ORDERED: CLOP75TA16 PO (10:11)
[2018-05-15] MEDS ORDERED: LINA5TAB PO (10:12)
[2018-05-15] MEDS ORDERED: AMLO10TA80 PO (10:48)
[2018-05-15 14:03] LABS: PLATELET ESTIMATE NORMAL
[2018-05-15 15:34] VITALS: BP 15/130
== END 2018-05-15 17:40 | disposition home health service (06) | DRG 64 ==
PROVIDERS: ADMIT Psychiatry & Neurology Neurology; ATTEND Family Medicine
DX: I63.89 Other cerebral infarction (principal); G93.41 Metabolic encephalopathy; S13.180A Subluxation of C7/T1 cervical vertebrae, initial encounter; E44.1 Mild protein-calorie malnutrition; G81.91 Hemiplegia, unspecified affecting right dominant side; E46 Unspecified protein-calorie malnutrition; R53.81 Other malaise; I10 Essential (primary) hypertension; E78.00 Pure hypercholesterolemia, unspecified; R26.9 Unspecified abnormalities of gait and mobility; E78.5 Hyperlipidemia, unspecified; E11.40 Type 2 diabetes mellitus with diabetic neuropathy, unspecified; G20 Parkinson's disease; F02.80 Dementia in other diseases classified elsewhere, unspecified severity, without behavioral disturbance, psychotic disturbance, mood disturbance, and anxiety; M48.02 Spinal stenosis, cervical region; J44.9 Chronic obstructive pulmonary disease, unspecified; F06.31 Mood disorder due to known physiological condition with depressive features; R32 Unspecified urinary incontinence; M19.011 Primary osteoarthritis, right shoulder; M75.101 Unspecified rotator cuff tear or rupture of right shoulder, not specified as traumatic; L89.90 Pressure ulcer of unspecified site, unspecified stage; D64.9 Anemia, unspecified; H40.9 Unspecified glaucoma; M50.33 Other cervical disc degeneration, cervicothoracic region; W18.39XA Other fall on same level, initial encounter; D72.829 Elevated white blood cell count, unspecified; I67.82 Cerebral ischemia; Z68.25 Body mass index [BMI] 25.0-25.9, adult; Z86.73 Personal history of transient ischemic attack (TIA), and cerebral infarction without residual deficits; Z85.3 Personal history of malignant neoplasm of breast; Z79.899 Other long term (current) drug therapy; Z79.82 Long term (current) use of aspirin; Z91.81 History of falling; Z87.440 Personal history of urinary (tract) infections; Y93.89 Activity, other specified; Y92.89 Other specified places as the place of occurrence of the external cause; Y99.8 Other external cause status; Z90.11 Acquired absence of right breast and nipple; Z79.84 Long term (current) use of oral hypoglycemic drugs; Z92.21 Personal history of antineoplastic chemotherapy; Z92.3 Personal history of irradiation; Z82.3 Family history of stroke
CPT/HCPCS: 36415; 73060; 73200; 78014; 80048; 80061; 82533; 82962; 83036; 83520; 83735; 84100; 84134; 84439; 84443; 84481; 85007; 85027; 92523; 92610; 93970; 94640; 97110; 97112; 97116; 97140; 97163; 97167; 97530; 97535; A9516; C1893; J1650; J1815; J7030; J7620; J7626

== ENCOUNTER 2018-06-30 12:20 | Emergency (ER) | payer MEDICARE, BC ==
[~2018-06-30] VITALS: Ht 154.9 cm; Wt 57.0 kg
[~2018-06-30 12:20] MED LIST changes: +AMLO10TA80 PO; +CLOP75TA16 PO; +LINA5TAB PO
[2018-06-30] MEDS ORDERED: ACETAMINOPHEN 325MG TABLET PO ONE (16:45)
[2018-06-30] MEDS ORDERED: BACITRACIN ZINC OINT UDPKT TOP ONE (20:00)
[2018-06-30 20:30] VITALS: BP 162/64
== END 2018-06-30 21:00 | disposition home or self-care (01) ==
LOC: ER 12:20
DX: S80.211A Abrasion, right knee, initial encounter (principal); M25.511 Pain in right shoulder; G31.89 Other specified degenerative diseases of nervous system; G89.29 Other chronic pain; I10 Essential (primary) hypertension; E11.9 Type 2 diabetes mellitus without complications; M85.80 Other specified disorders of bone density and structure, unspecified site; Z86.73 Personal history of transient ischemic attack (TIA), and cerebral infarction without residual deficits; Z98.890 Other specified postprocedural states; W19.XXXA Unspecified fall, initial encounter; Y93.89 Activity, other specified; Y92.89 Other specified places as the place of occurrence of the external cause
CPT/HCPCS: 73030; 73562; 99284

== ENCOUNTER → 2018-12-07 | Outpatient (CLI) | payer MEDICARE, BC ==
[~2018-12-07] MED LIST changes: -ASPI-1159 MT; +ASPI-1393 MT; -CLOP75TA16 PO; +CLOP75TA4 PO
== END | disposition home or self-care (01) ==
LOC: NM 11:51
PROVIDERS: ATTEND Internal Medicine Infectious Disease
DX: L02.818 Cutaneous abscess of other sites (principal)
CPT/HCPCS: 78802; A9556